=== PATIENT | female | born 1980 | race Caucasian/White ===

== ENCOUNTER 2022-01-04 08:34 | Outpatient (CLI) | payer OTHER, SELFPAY ==
[2022-01-04 11:05] LABS: Albumin* 3.4 g/dL (3.3-5.0); Chloride* 107 mmol/L (96-114)
[2022-01-04 11:06] LABS: Potassium* 4.5 mmol/L (3.6-5.1); Sodium* 137 mmol/L (135-149)
[2022-01-04 11:08] LABS: Alanine Aminotransferase* 23 U/L (4-35); Alkaline Phosphatase* 89 U/L (40-150); Aspartate Amino Transferase* 19 U/L (12-35); Bilirubin Total* 0.3 mg/dL (0.1-1.5); Blood Urea Nitrogen* 16 mg/dL (5-24); Carbon Dioxide* 23 mmol/L (20-32); Cholesterol* 113 mg/dL (90-199); Creatinine* 0.5 mg/dL (0.5-1.5); Estimated Glomerular Filt Rate 120 ml/min; Glucose* 259 mg/dL (60-115); Total Protein* 6.2 g/dL (6.0-8.3)
[2022-01-04 11:09] LABS: Calcium* 8.9 mg/dL (8.4-10.6); HDL Cholesterol* 45 mg/dL (>=50); LDL Cholesterol Calculated 49 mg/dL (<100); Triglycerides* 96 mg/dL (40-149)
[2022-01-04 11:22] LABS: Creatinine Urine 60.5 mg/dL
[2022-01-04 11:25] LABS: Microalbumin Creatinine Ratio 30 mg/g (0-30); Microalbumin Urine 2 mg/dL
== END 2022-01-04 08:35 | disposition home or self-care (01) ==
LOC: NFLDREF 08:34
PROVIDERS: PCP Internal Medicine; Visit Provider Internal Medicine
DX: R30.0 Dysuria (principal); E11.9 Type 2 diabetes mellitus without complications; B37.2 Candidiasis of skin and nail; B37.9 Candidiasis, unspecified
CPT/HCPCS: 80053; 80061; 82043; 82570

== ENCOUNTER 2022-09-02 09:59 | Outpatient (CLI) | payer OTHER, SELFPAY ==
--- NOTE | 2022-09-02 10:15 | CRLHL7_ITS ---
For Patients: As a result of the Century Cures Act, medical imaging exams and procedure reports are released immediately into your electronic medical record. You may view this report before your referring provider. If you have questions, please contact your health care provider. BILATERAL SCREENING MAMMOGRAM WITH COMPUTER-AIDED DETECTION TECHNIQUE: CC and MLO views were obtained. These mammographic images have been obtained using full-field digital technique. These mammographic images were interpreted with the benefit of computer-aided detection. COMPARISON FILM: 09/01/16 left diagnostic. FINDINGS: There are scattered areas of fibroglandular density. IMPRESSION: There is no radiographic evidence for malignancy. ASSESSMENT: BI-RADS Category 1: Negative RECOMMENDATION: Routine screening mammogram in 1 year. A lay language report of this examination will be provided to the patient. RASHARD TREVIZO M.D. Diagnostic Radiologist [email or web address] Transcribed: 09/02/2022, 2:[address]/Dictated by: Rashard Trevizo MD @ 09/02/2022 11:14:00 AM (Electronically Signed)
== END 2022-09-02 10:00 | disposition home or self-care (01) ==
LOC: MAMMO 10:00
PROVIDERS: PCP Internal Medicine; Visit Provider Internal Medicine
DX: Z12.31 Encounter for screening mammogram for malignant neoplasm of breast (principal)
CPT/HCPCS: 77063; 77067

== ENCOUNTER 2023-08-29 15:43 | Outpatient (CLI) | payer OTHER, SELFPAY | END 2023-08-29 15:44 | disposition home or self-care (01) | LOC: NFLDREF 15:44 | PROVIDERS: PCP Internal Medicine; Visit Provider Internal Medicine | DX: I10 Essential (primary) hypertension (principal) | CPT/HCPCS: 80048 ==

== ENCOUNTER 2024-10-04 15:24 | Outpatient (CLI) | payer OTHER, SELFPAY | END 2024-10-04 15:25 | disposition home or self-care (01) | PROVIDERS: PCP Internal Medicine; Visit Provider Internal Medicine | DX: E78.5 Hyperlipidemia, unspecified (principal); I10 Essential (primary) hypertension | CPT/HCPCS: 80048; 80061 ==